=== PATIENT | male | born 1980 | race Caucasian/White ===

== ENCOUNTER 2016-12-19 00:14 | Emergency (ER) | payer MEDICAID, MEDICARE, OTHER ==
[~2016-12-19] VITALS: Ht 185.4 cm; Wt 79.4 kg
[~2016-12-19 00:14] MED LIST: BACITRACIN-P28.35 GM TP; BENTYL10 MG ORAL; CIPRODEX OTIC7.5 M1 RIGHT EAR; NAPROXEN375 M2 ORAL; NKM
[2016-12-19] MEDS ORDERED: AMOXICILLIN500 MG ORAL (00:48)
[2016-12-19] MEDS ORDERED: IBUPROFEN600 MG ORAL (00:48)
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
[2016-12-19 02:03] VITALS: BP_SYST 122; BP_SYST 124; BP_DIAS 80; BP_DIAS 82
--- NOTE | 2016-12-19 09:39 | Diagnostic Imaging Report ---
Indication: Left-sided head pain Technique: Continuous helical CT scanning of the head was performed without intravenous contrast material. Axial and coronal 5 mm sections were generated. Radiation dose was minimized using automated exposure control Dose: Total Dose Length Product - DLP [address] Dose Index - CTDIvol(s) 70.38 mGy. Comparison: None Findings: The ventricular system is normal in size and configuration. There is no shift of midline structures. No abnormal extra-axial fluid collections are noted. There is no evidence of intracerebral bleeding. No other abnormal high or low density areas are noted within the brain. Impression: Normal CT scan of the head without contrast material. This agrees with the preliminary interpretation provided overnight by [facility]. The CT scanner at [facility] is accredited by the [employer] and the scans are performed using protocols designed to limit radiation exposure to as low as reasonably achievable to attain images of sufficient resolution adequate for diagnostic evaluation.
== END 2016-12-19 02:04 | disposition home or self-care (01) ==
LOC: EMR 00:30
DX: K08.89 Other specified disorders of teeth and supporting structures (principal); M79.1 Myalgia; R07.9 Chest pain, unspecified
CPT/HCPCS: 70450; 99284